=== PATIENT | male | born 1940 | race Caucasian/White ===

== ENCOUNTER 2019-10-05 07:08 | Emergency (ER) | payer OTHER ==
[~2019-10-05] VITALS: Ht 177.8 cm; Wt 70.3 kg
[2019-10-05 07:36] LABS: ABSOLUTE BASOPHILS 0.1 thou/uL (0.0-0.2); ABSOLUTE EOSINOPHILS 0.4 thou/uL (0.0-0.7); ABSOLUTE LYMPHOCYTES 1.3 thou/uL (0.8-5.3); ABSOLUTE MONOCYTES 0.5 thou/uL (0.0-1.2); ABSOLUTE NEUTROPHILS 3.6 thou/uL (1.6-8.1); BASOPHILS 1.2 %; EOSINOPHILS 6.6 %; HEMATOCRIT 44.9 % (42.0-52.0); HEMOGLOBIN 15.2 gm/dL (14.0-18.0); LYMPHOCYTES 21.9 %; MCH 31.6 pg (26.0-34.0); MCHC 33.9 g/dL (28.0-37.0); MCV 93.4 fL (80.0-100.0); MONOCYTES 8.7 %; MPV 8.8 fl. (7.2-11.1); NUCLEATED RBCS 0 /100WBC; PLATELET COUNT* 209 thou/uL (150-400); POLYS 61.6 %; RDW-CV 14.2 % (10.5-14.5); WBC 5.9 thou/uL (4.0-11.0)
[2019-10-05 07:44] LABS: PROTIME 10.7 Seconds (9.20-11.50)
[2019-10-05 07:50] LABS: CALCIUM 8.5 mg/dL (8.5-10.1); CREATININE 1.3 mg/dL (0.6-1.3); POTASSIUM 4.2 mmol/L (3.5-5.1)
[2019-10-05 07:54] LABS: MAGNESIUM 2.2 mg/dL (1.8-2.4); TOTAL BILIRUBIN 0.4 mg/dL (<0.1-1.0); TOTAL PROTEIN 7.6 g/dL (6.4-8.2)
--- NOTE | 2019-10-05 09:59 | EKG ---
[place] [address] ELECTROCARDIOGRAM REPORT Name: FER NICHOLS Room: [facility]#: [id number] Admission: 10/05/19 Attend Phys: Discharge: Date of : 40 Date of Service: 10/05/19711 Report #: [id number] THIS REPORT FOR: //name// [facility] ED Test Date: 2019-10-05 Test Time: 07:12:32 Pat Name: FER NICHOLS Department: Room: Gender: Media Planner / Buyer: [facility] : 1940 Requested By: Jovani Victor Order Number: [id number] MD: Dennis Patel Measurements Intervals [place] Rate: 59 P: 61 [place]: 178 QRS: -16 QRSD: 102 T: 45 QT: 496 QTc: 492 Interpretive Statements Sinus rhythm Borderline left axis deviation Borderline T wave abnormalities Borderline prolonged QT interval No previous ECG available for comparison Electronically Signed On 10-05-2019 9:59:08 CDT by Dennis Patel [email or web address] <ELECTRONICALLY SIGNED> By: Dennis Patel MD, [facility] 10/05/19 0959 1 1 Dennis Patel MD, [facility] /EPI
[2019-10-05 11:50] VITALS: BP 123/66
== END 2019-10-05 11:50 | disposition short-term general hospital (02) ==
LOC: M.ERS 07:08
PROVIDERS: Emergency Medicine Emergency Medical Services
DX: R07.89 Other chest pain (principal); Z88.5 Allergy status to narcotic agent; Z88.8 Allergy status to other drugs, medicaments and biological substances; Z95.5 Presence of coronary angioplasty implant and graft